=== PATIENT | male | born 1975 | race Two or more races ===

== ENCOUNTER 2019-01-16 21:15 | Emergency (ER) | payer MEDICAID ==
--- NOTE | 2019-01-16 21:29 | EDPHY ---
H & P Source: Police Exam Limitations: Intoxication Time Seen by Provider: 01/16/19 21:25 HPI/ROS: HPI: This is a 36-year-old male who presents with Chief Complaint: Intoxication, [facility] Location: Body Quality: Toxication Duration: Unknown Signs and Symptoms: Unable to obtain as patient is uncooperative Timing: Unknown Severity: Moderate to severe Context: Patient presents via police in 4 point restraints for intoxication suspected alcohol and other substances. Transient were calling the patient "Godfrey." Patient looks familiar to me but I cannot recall his name. Patient keeps looking around the room and refuses to communicate. Smells heavily of alcohol. Modifying Factors: None Comment: ROS: Unable to identify due to intoxication patient not cooperating MEDICAL/SURGICAL/SOCIAL HISTORY: Medical history: Alcohol and polysubstance abuse. Surgical history: Denies Social history: Homeless. Family history noncontributory. CONSTITUTIONAL: Intoxicated, middle-aged white male, awake and alert, no obvious distress HEENT: Atraumatic and normocephalic, PERRL, EOMI. Nares patent; no rhinorrhea; no nasal mucosal edema. Tympanic membranes clear. Oropharynx clear, no exudate and moist pink mucosa. Airway patent. No lymphadenopathy. No meningismus. Cardiovascular: Normal S1/S2, regular rate, regular rhythm, without murmur rub or gallop. PULMONARY/CHEST: Symmetrical and nontender. Clear to auscultation bilaterally. Good air movement. No accessory muscle usage. ABDOMEN: Soft, nondistended, nontender, no rebound, no guarding, no peritoneal signs, no masses or organomegaly. No CVAT. EXTREMITIES: 2/2 pulses, strength 5/5, no deformities, no clubbing, no cyanosis or edema. NEUROLOGICAL: Moving neck and 4 extremities without difficulty. Will not communicate. SKIN: Warm and dry, tattoos on neck and arms, no erythema. no rash. Good capillary refill. ([place]) Constitutional: Initial Vital Signs Temperature (C) 36.4 C 01/16/19 21:15 Heart Rate 115 H 01/16/19 21:15 Respiratory Rate 18 01/16/19 21:15 Blood Pressure 166/117 H 01/16/19 21:15 O2 Sat (%) 96 01/16/19 21:15 O2 Delivery Mode Room Air Allergies/Adverse Reactions: Unable to Assess Allergy (Unverified 01/16/19 21:34) Home Medications: Medication Instructions Recorded Unobtainable 01/16/19 Medical Decision Making ED Course/Re-evaluation: PHYSICIAN DOCUMENTATION: The patient was evaluated and managed by the Physician Ductfixing Plumber. My co- signature indicates that I have reviewed this chart and I agree with the findings and plan of care as documented. I am the secondary supervising physician. 1:13 a.m.- The patient was able to walk without difficulty and felt better. He was clinically sober. He is cooperative and calm at this time. He is able to answer all of my questions appropriately. [facility]. (Harper Hughes) Agree with [facility] hold. Agree with 4 point restraints as patient is uncooperative and presents a safety threat to the staff and to himself. Breathalyzer ordered. 2318: Reassessed patient is sleeping soundly on right side. 0000: End of Shift. Signed over to Dr. Hughes pending re-assessment and final disposition. This patient was seen under the supervision of my secondary supervising physician. I evaluated and cared for this patient with attending. (Jackie Garner) Differential Diagnosis: Altered mental status including but not limited to hypoglycemia, infectious process, electrolyte abnormality, head injury and intoxicants. (Jackie Garner) - Data Points Medications Given: Discontinued Medications Chlordiazepoxide (Librium 25 Mg Prepack#6) [facility] Stop: 01/17/19 01:40 Last Admin: 01/17/19 01:48 Dose: 1 btl Departure - Departure Disposition: Home, Routine, Self-Care Clinical Impression: Alcoholic intoxication Qualifiers: Complication of substance-induced condition: with delirium Qualified Code(s): F10.921 - Alcohol use, unspecified with intoxication delirium Condition: Good Instructions: Chlordiazepoxide/Clidinium (By mouth), At-Risk Alcohol Use (ED) Referrals: [facility],. [Clinic] - As per Instructions
[2019-01-17] MEDS ORDERED: CHLORDIAZEPOXIDE 25MG PREPK#6 BTL TAKEHOME ONE (01:39)
[2019-01-17 01:46] VITALS: BP 138/77
== END 2019-01-17 01:45 | disposition home or self-care (01) ==
LOC: EDBD 21:15
DX: F10.921 Alcohol use, unspecified with intoxication delirium (principal)